=== PATIENT | female | born 1980 | race Caucasian/White ===

== ENCOUNTER 2016-11-23 16:58 | Emergency (ER) | payer OTHER ==
[~2016-11-23] VITALS: Ht 170.2 cm; Wt 67.0 kg
[~2016-11-23 16:58] MED LIST: CLINDAMYCIN HC300 MG PO; IBUPROFEN600 MG PO; IBUPROFEN800 MG PO; MOTRIN600 MG PO; MOTRIN800 MG PO; NAPROSYN500 MG PO; NORCO 5/3251 TABLET PO; PERCOCET 5/31 TABLET PO; PHENERGAN25 MG PR; PROMETHAZINE HC25 M1 PO; TORADOL10 MG PO
[2016-11-23] MEDS ORDERED: MOTRIN600 MG PO (19:27)
[2016-11-23] MEDS ORDERED: SKELAXIN800 MG PO (19:27)
[2016-11-23] MEDS ORDERED: NORCO 5/3251 TABLET PO (19:31)
[2016-11-23 19:33] VITALS: BP 125/72
== END 2016-11-23 19:41 | disposition home or self-care (01) ==
LOC: EME 16:58
DX: M62.838 Other muscle spasm (principal); M54.2 Cervicalgia; M54.5 Low back pain; V49.40XA Driver injured in collision with unspecified motor vehicles in traffic accident, initial encounter
CPT/HCPCS: 72128; 99281; 99284

== ENCOUNTER 2018-02-13 22:38 | Emergency (ER) | payer OTHER ==
[~2018-02-13] VITALS: Ht 167.6 cm; Wt 70.1 kg
[~2018-02-13 22:38] MED LIST changes: +SKELAXIN800 MG PO
[2018-02-14] MEDS ORDERED: NORCO 5/3251 TABLET PO (00:08)
[2018-02-14] MEDS ORDERED: CLEOCIN300 MG PO (00:08)
[2018-02-14 00:17] VITALS: BP 113/80
== END 2018-02-14 00:17 | disposition home or self-care (01) ==
LOC: EME 22:38
DX: K04.7 Periapical abscess without sinus (principal); Z86.2 Personal history of diseases of the blood and blood-forming organs and certain disorders involving the immune mechanism; Z91.013 Allergy to seafood; Z91.040 Latex allergy status; Z88.5 Allergy status to narcotic agent; Z88.2 Allergy status to sulfonamides; Z88.0 Allergy status to penicillin; Z91.018 Allergy to other foods; Z91.030 Bee allergy status; Z91.010 Allergy to peanuts
CPT/HCPCS: 99281; 99283

== ENCOUNTER 2018-02-18 14:58 | Emergency (ER) | payer OTHER ==
[~2018-02-18] VITALS: Ht 167.6 cm; Wt 68.6 kg
[~2018-02-18 14:58] MED LIST changes: +CLEOCIN300 MG PO
[2018-02-18 15:23] VITALS: BP 120/78
== END 2018-02-18 16:33 | disposition left against medical advice (07) ==
LOC: EME 14:58
DX: K08.89 Other specified disorders of teeth and supporting structures (principal); Z53.21 Procedure and treatment not carried out due to patient leaving prior to being seen by health care provider